=== PATIENT | female | born 1975 | race Two or more races ===

== ENCOUNTER 2024-10-13 04:33 | Emergency (ER) | payer MEDICAID, SELFPAY ==
[2024-10-13 04:33] VITALS: BMI 35.2
[2024-10-13 04:38] VITALS: BP 150/92; PULSE 77; RESP 19; TEMP 36.6; O2SAT 97
--- NOTE | 2024-10-13 04:59 | XR_ITS ---
Examination: CT brain head without contrast. 2-D sagittal coronal reconstructions Date and time of exam:October 13, 2024 0514 hrs. Comparison September 15, 2019 Indications: Headaches pressure in the head and face beginning 3 days ago CTDI: vol (mGy):48.8 DLP: (mGycm):1003 Technique: Multiple CT axial sections of the brain have been obtained, 5 mm slice thickness. Contrast has not been administered. 2-D sagittal, coronal reconstructions have been obtained Low dose protocols were performed. One or more of the following dose reduction techniques were used; automated exposure control, adjustment of the mA and/or KV according to patient size, use of iterative reconstruction technique. Findings: No significant ventricular enlargement. Intra-axial or extra-axial hemorrhage density is not seen. No mass effect or midline shift Basal cisterns are not remarkable. Fourth ventricle is midline. Cranial vault intact. Impression: Negative for acute hemorrhage, mass effect or midline shift Advise clinical correlation and follow-up accordingly
--- NOTE | 2024-10-13 04:59 | PD.EDRME ---
Rapid Medical Screening Exam E Arrival date/time: 10/13/24 04:33 49F with no significant PMH presents to ED with 2 days of face/head pressure, that feels different than a SOFIA. Patient has had some nasal congestion. Patient insists on CT. Chief Complaint: Headache Vital signs: Vital Signs Temperature 97.9 F 10/13/24 04:38 Pulse Rate 77 10/13/24 04:38 Respiratory Rate 19 10/13/24 04:38 Blood Pressure 150/92 H 10/13/24 04:38 Pulse Oximetry (%) 97 10/13/24 04:38 Oxygen Delivery Method Room Air 10/13/24 04:38
[2024-10-13] MEDS: DEXAMETHASONE SOD PHOS INJ 10 MG/ML VIAL PO (05:08)
--- NOTE | 2024-10-13 05:56 | PRELIM_ITS ---
CT scan of the head without intravenous contrast (axial sections with sagittal and coronal reformats) . October 13, 2024 0514 hoursClinical History: Pressure in head/faceComparison: No prior study is available for comparison. Findings:No evidence of intracranial hemorrhage, mass effect or midline kiana ft. The ventricles and CSF spaces are unremarkable. The calvarium is unremarkable. The mastoid air ce lls and the visualized paranasal sinuses are clear.Impression:No evidence of intracranial hemorrhage, mass effect or midline shift. Report Electronically Signed By: Yakov Rico 10/13/2024 5:56:09 AM [ES T]
--- NOTE | 2024-10-13 06:26 | PD.EDHA ---
ED Headache RME/HPI General Chief Complaint: Headache Stated Complaint: HEADACHE Time Seen by Provider: 10/13/24 06:05 Arrival date/time: 10/13/24 04:33 49F with no significant PMH presents to ED with 2 days of face/head pressure, that feels different than a SOFIA. Patient has had some nasal congestion. Patient insists on CT. there are no other associated symptoms or aggravating factors no other modifying factors, patient denies taking medication before coming to ER today Limitations: no limitations RME / HPI RME / HPI Narrative: 10/13/24 04:33 49F with no significant PMH presents to ED with 2 days of face/head pressure, that feels different than a SOFIA. Patient has had some nasal congestion. Patient insists on CT. Related Data Previous Rx's ?Medication ?Instructions ?Recorded benzonatate 100 mg capsule 100 mg PO TID #14 caps 05/29/24 ibuprofen 800 mg tablet 800 mg PO TID PRN pain #30 tabs 05/29/24 ibuprofen 800 mg tablet 800 mg PO TID PRN pain #30 tabs 07/22/24 fluticasone propionate 50 2 spray intranasal QDAY PRN 10/13/24 mcg/actuation nasal allergy symptoms #16 grams spray,suspension (Flonase Allergy Relief) ibuprofen 800 mg tablet 800 mg PO TID PRN pain #30 tabs 10/13/24 prednisone 10 mg tablet 30 mg (3 x 10 mg) PO BID 3 days 10/13/24 #18 tabs Allergies Allergy/AdvReac Type Severity Reaction Status Date / Time hydrocodone bit Allergy Severe Nausea/Vomi Verified 08/10/24 06:27 tiing Review of Systems Review of Systems Systems Reviewed: All systems reviewed, normal except as documented Constitutional Constitutional: Reports system reviewed and no additional complaints, except as documented, Denies fever(s) and Reports headache(s) Eyes Eyes: Reports system reviewed and no additional complaints, except as documented and Denies blurry vision ENT Ears, Nose, Mouth, and Throat: Reports system reviewed and no additional complaints, except as documented, Reports headache(s), Reports nasal congestion and Reports nasal discharge Cardiovascular Cardiovascular: Reports system reviewed and no additional complaints, except as documented, Denies chest pain and Denies dyspnea Respiratory Respiratory: Reports system reviewed and no additional complaints, except as documented, Denies chest congestion, Denies cough and Denies dyspnea Gastrointestinal Gastrointestinal: Reports system reviewed and no additional complaints, except as documented and Denies abdominal pain Integumentary/Breasts Skin/Breast: Reports system reviewed and no additional complaints, except as documented and Denies rash Neurologic Neurologic: Reports system reviewed and no additional complaints, except as documented, Reports as per HPI and Reports headache(s) Past Medical History Past Medical History NEUROLOGIC: Negative Seizures CARDIAC: Negative Congestive Heart Failure RESPIRATORY: Negative Chronic Obstructive Pulmonary Disease (COPD) GENITOURINARY: Negative Renal Disease ENDOCRINE: Negative Diabetes Mellitus Type 1 or Diabetes Mellitus Type 2 OTHER HISTORY: Negative Blood Transfusions, Blood Transfusion Reaction or Anesthesia Reactions Family History FAMILY HISTORY: Positive Family Cardiac Disorders Social History SMOKING STATUS: Never smoker ED Exam General Limitations: Present no limitations General appearance: Present alert and in no apparent distress Head Head exam: Present atraumatic Eye Eye exam: Present normal appearance, PERRL and EOMI; Absent conjunctival injection ENT ENT exam: Present normal exam, normal oropharynx and mucous membranes moist Neck Neck exam: Present normal inspection, full ROM and trachea midline Chest Chest inspection: Present normal inspection and symmetric chest wall rise Respiratory Respiratory exam: Present normal lung sounds bilaterally; Absent respiratory distress Cardiovascular Cardiovascular exam: Present regular rate, normal rhythm and normal heart sounds Abdominal Exam Abdominal exam: Present soft and normal bowel sounds Extremities Exam Extremities exam: Present normal inspection and full ROM Back Exam Back exam: Present normal inspection and full ROM Neurological Exam Neurological exam: Present alert, oriented X3 and CN II-XII intact Psychiatric Psychiatric exam: Present normal affect and normal mood Skin Skin exam: Present warm, dry, intact and normal color Course Quality Measures none Orders Category Date Time Status CT head/brain wo con Stat Exams 10/13/24 04:59 Completed Dexamethasone Inj [Decadron Inj] Med 10/13/24 04:59 Discontinued 10 mg PO X1 ONE Vital Signs Vital signs: Vital Signs Temperature 97.9 F 10/13/24 04:38 Pulse Rate 77 10/13/24 04:38 Respiratory Rate 19 10/13/24 04:38 Blood Pressure 150/92 H 10/13/24 04:38 Pulse Oximetry (%) 97 10/13/24 04:38 Oxygen Delivery Method Room Air 10/13/24 04:38 O2 saturation 97% room air within normal limits Headache MDM Narrative MDM Narrative:: 49F with no significant PMH presents to ED with 2 days of face/head pressure, that feels different than a SOFIA. Patient has had some nasal congestion. Patient insists on CT. there are no other associated symptoms or aggravating factors no other modifying factors, patient denies taking medication before coming to ER today On exam symptoms highly consistent with URI/nasal congestion Patient on exam has no abnormal neurological findings Patient discharged home in no distress to follow-up with primary care doctor in the next 24 to 48 hours and for any worsening symptoms to return to the ER immediately Patient data External records reviewed:: [facility] previous records Clinical information provided by:: patient Social determinants that could affect healthcare access:: none Patient has the following chronic illnesses:: None How is presenting disease/condition affected by chronic disease/condition?: no chronic disease Evaluation data The following diagnostics were reviewed and interpreted by me:: radiology exam(s) Lab and/or radiology exams considered but not ordered:: Radiology obtained Interpretation Summary: Reviewed by me Medications / Prescriptions Medications or Prescriptions considered but not ordered:: Given Medication administrations:: Medication Administration History Discontinued Medications Dexamethasone Sodium Phosphate (Dexamethasone Sod Phos Inj 10 Mg/Ml Vial) 10 mg PO X1 ONE Stop: 10/13/24 05:00 Last Admin: 10/13/24 05:08 Dose: 10 mg Documented By: CVL Given Consultations Consultation(s) initiated? (list below): No Diagnosis Differential diagnosis headache: migraine and tension headache Most likely diagnosis given after review of the tests above:: Headache Admission Indicated Admission indicated?: not indicated Admission Request Was there a request for admission?: No Disposition Plan Disposition Plan: Discharge Discharge Attestation Discharge Attestation: The patient and all family members were given an opportunity to ask questions and understood the discharge instructions. Discharge instructions specifically effects, indications for sooner follow up or return to the emergency department, and the expected course of current diagnosis. Patient condition: Stable Discharge Plan Plan Patient Disposition: HOME (Self Care) Disposition Comment: Stable Prescriptions/Referrals Prescriptions/Med Rec: New fluticasone propionate [Flonase Allergy Relief] 50 mcg/actuation spray,suspension 2 spray INTRANASAL QDAY PRN (Reason: allergy symptoms) Qty: 16 0RF Rx Instructions: administer into each nostril prednisone 10 mg tablet 30 mg PO BID 3 Days Qty: 18 0RF ibuprofen 800 mg tablet 800 mg PO TID PRN (Reason: pain) Qty: 30 0RF No Action ibuprofen 800 mg tablet 800 mg PO TID PRN (Reason: pain) Qty: 30 0RF benzonatate 100 mg capsule 100 mg PO TID Qty: 14 0RF ibuprofen 800 mg tablet 800 mg PO TID PRN (Reason: pain) Qty: 30 0RF Referrals: Dali Galvan MD [Primary Care Provider] - 10/14/24 Problem List Clinical Impression: Headache, Congested nose Patient/Caregiver Discharge Instructions Education Materials: Self-Care for Headaches Additional Instructions: Please follow up with your primary care doctor in the next 24-48hrs for any worsening symptoms return here immediately Print Language: Yakut Stand Alone Forms: Delia Award Info., Patient Portal Info Letter MD Attestation Attestation The patient was seen by the midlevel practitioner. I, the co-signing physician, was present during the entire ER visit. While I did not physically examine the patient, I was available for consultation as needed.
[2024-10-13 06:36] VITALS: RESP 18
== END 2024-10-13 06:37 | disposition home or self-care (01) ==
PROVIDERS: Emergency Provider Emergency Medicine; PCP Family Medicine
DX: R51.9 Headache, unspecified (principal); R09.81 Nasal congestion
CPT/HCPCS: 70450; 99284; J1100

== ENCOUNTER 2024-10-23 13:34 | Emergency (ER) | payer MEDICAID, SELFPAY ==
[2024-10-23 13:58] VITALS: BP 150/90; PULSE 84; RESP 18; TEMP 37.2; O2SAT 98; BMI 34.9
--- NOTE | 2024-10-23 14:00 | PD.EDEAR ---
ED Ear RME/HPI General Chief complaint: Ear Stated complaint: Left ear pain, blood in ear today Time Seen by Provider: 10/23/24 13:38 Arrival date/time: 10/23/24 13:34 49-year-old female presents emergency department today with complaints of left ear pain patient reports that she poked her left ear with a Q-tip patient reports symptoms blood on the end of the Q-tip patient reports no active bleeding Limitations: no limitations Related Data Previous Rx's ?Medication ?Instructions ?Recorded benzonatate 100 mg capsule 100 mg PO TID #14 caps 05/29/24 ibuprofen 800 mg tablet 800 mg PO TID PRN pain #30 tabs 05/29/24 ibuprofen 800 mg tablet 800 mg PO TID PRN pain #30 tabs 07/22/24 fluticasone propionate 50 2 spray intranasal QDAY PRN 10/13/24 mcg/actuation nasal allergy symptoms #16 grams spray,suspension (Flonase Allergy Relief) ibuprofen 800 mg tablet 800 mg PO TID PRN pain #30 tabs 10/13/24 amoxicillin 875 mg-potassium 1 tab PO BID 10 days #20 tabs 10/23/24 clavulanate 125 mg tablet ibuprofen 800 mg tablet 800 mg PO TID PRN pain #30 tabs 10/23/24 ofloxacin 0.3 % ear drops 10 drop otic (ear) QDAY 10 days 10/23/24 #10 mL Allergies Allergy/AdvReac Type Severity Reaction Status Date / Time hydrocodone bit Allergy Severe Nausea/Vomi Verified 08/10/24 06:27 tiing Review of Systems Review of Systems Systems Reviewed: All systems reviewed, normal except as documented Constitutional Constitutional: Reports system reviewed and no additional complaints, except as documented, Denies fever(s) and Denies headache(s) Eyes Eyes: Reports system reviewed and no additional complaints, except as documented and Denies blurry vision ENT Ears, Nose, Mouth, and Throat: Reports system reviewed and no additional complaints, except as documented, Denies ear discharge, Reports otalgia, Denies headache(s), Denies nasal congestion and Denies nasal discharge Cardiovascular Cardiovascular: Reports system reviewed and no additional complaints, except as documented, Denies chest pain and Denies dyspnea Respiratory Respiratory: Reports system reviewed and no additional complaints, except as documented, Denies chest congestion, Denies cough and Denies dyspnea Gastrointestinal Gastrointestinal: Reports system reviewed and no additional complaints, except as documented and Denies abdominal pain Integumentary/Breasts Skin/Breast: Reports system reviewed and no additional complaints, except as documented and Denies rash Neurologic Neurologic: Reports system reviewed and no additional complaints, except as documented, Reports as per HPI and Denies headache(s) Past Medical History Past Medical History NEUROLOGIC: Negative Neurological Disorders CARDIAC: Negative Cardiac Disorders ED Exam General Limitations: Present no limitations General appearance: Present alert and in no apparent distress Head Head exam: Present atraumatic Eye Eye exam: Present normal appearance, PERRL and EOMI ENT ENT exam: Present mucous membranes moist Expanded ENT Exam TM/Canal exam: Left TM: perforation Neck Neck exam: Present normal inspection, full ROM and trachea midline Chest Chest inspection: Present normal inspection and symmetric chest wall rise Respiratory Respiratory exam: Present normal lung sounds bilaterally Cardiovascular Cardiovascular exam: Present regular rate, normal rhythm and normal heart sounds Abdominal Exam Abdominal exam: Present soft and normal bowel sounds Extremities Exam Extremities exam: Present normal inspection and full ROM Back Exam Back exam: Present normal inspection and full ROM Neurological Exam Neurological exam: Present alert, oriented X3 and CN II-XII intact Psychiatric Psychiatric exam: Present normal affect and normal mood Skin Skin exam: Present warm, dry, intact and normal color Course Quality Measures none Vital Signs Vital signs: Vital Signs Temperature 99.0 F 10/23/24 13:58 Pulse Rate 84 10/23/24 13:58 Respiratory Rate 18 10/23/24 13:58 Blood Pressure 150/90 H 10/23/24 13:58 Pulse Oximetry (%) 98 10/23/24 13:58 Oxygen Delivery Method Room Air 10/23/24 13:58 O2 saturation 98% room air within normal limits Ear Patient data External records reviewed:: [facility] previous records Clinical information provided by:: patient Social determinants that could affect healthcare access:: none Patient has the following chronic illnesses:: See history How is presenting disease/condition affected by chronic disease/condition?: uneffected by Evaluation data The following diagnostics were reviewed and interpreted by me:: other (specify) (N/A) Lab and/or radiology exams considered but not ordered:: Consider not ordered Interpretation Summary: N/A Medications / Prescriptions Medications or Prescriptions considered but not ordered:: Given Medication administrations:: Given Consultations Consultation(s) initiated? (list below): No Diagnosis Most likely diagnosis given after review of the tests above:: TM injury Admission Indicated Admission indicated?: not indicated Admission Request Was there a request for admission?: No Disposition Plan Disposition Plan: Discharge Discharge Attestation Discharge Attestation: The patient and all family members were given an opportunity to ask questions and understood the discharge instructions. Discharge instructions specifically effects, indications for sooner follow up or return to the emergency department, and the expected course of current diagnosis. Patient condition: Stable Medical Decision Making MDM Narrative MDM Narrative: 49-year-old female presents emergency department today with complaints of left ear pain patient reports that she poked her left ear with a Q-tip patient reports symptoms blood on the end of the Q-tip patient reports no active bleeding On exam patient does not appear ill or toxic in no acute distress Patient appears to have a small TM rupture patient will treat with course of antibiotics and pain medication patient instructed to follow-up with specialist Patient discharged home in no distress to follow-up with primary care doctor in the next 24 to 48 hours and for any worsening symptoms to return to the ER immediately Differential Diagnosis Differential Diagnosis: Otitis media, otitis externa, eustachian tube dysfunction Medical Records Medical records reviewed: Yes I reviewed the patient's medical records. Discharge Plan Plan Patient Disposition: HOME (Self Care) Disposition Comment: Stable Prescriptions/Referrals Prescriptions/Med Rec: New ibuprofen 800 mg tablet 800 mg PO TID PRN (Reason: pain) Qty: 30 0RF amoxicillin-pot clavulanate 875-125 mg tablet 1 tab PO BID 10 Days Qty: 20 0RF ofloxacin 0.3 % drops 10 drop otic (ear) QDAY 10 Days Qty: 10 0RF No Action fluticasone propionate [Flonase Allergy Relief] 50 mcg/actuation spray,suspension 2 spray INTRANASAL QDAY PRN (Reason: allergy symptoms) Qty: 16 0RF Rx Instructions: administer into each nostril ibuprofen 800 mg tablet 800 mg PO TID PRN (Reason: pain) Qty: 30 0RF ibuprofen 800 mg tablet 800 mg PO TID PRN (Reason: pain) Qty: 30 0RF benzonatate 100 mg capsule 100 mg PO TID Qty: 14 0RF ibuprofen 800 mg tablet 800 mg PO TID PRN (Reason: pain) Qty: 30 0RF Problem List Clinical Impression: Ear pain, left, Injury of tympanic membrane Patient/Caregiver Discharge Instructions Education Materials: Anatomy of the Ear Additional Instructions: Please follow up with your primary care doctor in the next 24-48hrs for any worsening symptoms return here immediately Print Language: [place] Stand Alone Forms: Delia Award Info., Patient Portal Info Letter PA/[employer] Supervising Physician PA/[employer] Supervising Physician: Dr Call
== END 2024-10-23 14:09 | disposition home or self-care (01) ==
LOC: SERX 14:14
PROVIDERS: Emergency Provider Emergency Medicine; PCP Nurse Practitioner Family
DX: S09.91XA Unspecified injury of ear, initial encounter (principal); X58.XXXA Exposure to other specified factors, initial encounter
CPT/HCPCS: 99281

== ENCOUNTER 2025-05-21 06:59 | Emergency (ER) | payer MEDICAID, SELFPAY ==
[2025-05-21 07:01] VITALS: BMI 34.7
[2025-05-21 07:09] VITALS: BP 132/88; PULSE 75; RESP 18; TEMP 36.7; O2SAT 97
--- NOTE | 2025-05-21 07:41 | EDNOTE_ITS ---
ED Extremity Problem RME/HPI General Chief complaint: Extremity Problem,Nontraumatic Stated complaint: FIFI. KNEE PAIN Time Seen by Provider: 05/21/25 07:06 Source: patient Arrival date/time: 05/21/25 06:59 49-year-old female with no known medical history presents to the emergency room with a chief complaint of bilateral knee pain x 4 days Mode of arrival: ambulatory Limitations: no limitations Related Data Previous Rx's ?Medication ?Instructions ?Recorded benzonatate 100 mg capsule 100 mg PO TID #14 caps 05/19 12/12 ibuprofen 800 mg tablet 800 mg PO TID PRN pain #30 t abs 05/29/24 ibuprofen 800 mg tablet 800 mg PO TID PRN pain #30 t abs 07/22/24 fluticasone propionate 50 2 spray intranasal QDAY PRN 10/13/24 mcg/actuation nasal allergy symptoms #16 grams spray,suspension (Flonase Allergy Relief) ibuprofen 800 mg tablet 800 mg PO TID PRN pain #30 t abs 10/13/24 ibuprofen 800 mg tablet 800 mg PO TID PRN pain #30 t abs 10/23/24 Allergies Allergy/AdvReac Type Severity Reaction Status Date / Time hydrocodone bit Allergy Severe Nausea/Vomi Verified 05/21/25 07:00 tiing acetaminophen (From Vicodin) Allergy Swelling Verified 05/21/25 07:00 of Lip/Tongue/Throat hydrocodone (From Vicodin) Allergy Swelling Verified 05/21/25 07:00 of Lip/Tongue/Throat Review of Systems Review of Systems Systems Reviewed: All systems reviewed, normal except as documented Constitutional Constitutional: Reports system reviewed and no additional complaints, except as documented, Denies fatigue, Denies fever(s), Denies headache(s) and Denies weakness Eyes Eyes: Reports system reviewed and no additional complaints, except as documented, Denies blurry vision and Denies change in vision ENT Ears, Nose, Mouth, and Throat: Reports system reviewed and no additional complaints, except as documented, Denies otalgia, Denies headache(s), Denies nasal congestion, Denies throat swelling and Denies vertigo Cardiovascular Cardiovascular: Reports system reviewed and no additional complaints, except as documented, Denies chest pain, Denies dyspnea and Denies dyspnea on exertion Respiratory Respiratory: Reports system reviewed and no additional complaints, except as documented, Denies chest congestion, Denies cough, Denies dyspnea, Denies dyspnea on exertion and Denies wheezing Gastrointestinal Gastrointestinal: Reports system reviewed and no additional complaints, except as documented, Denies abdominal pain, Denies cramping, Denies nausea and Denies vomiting Genitourinary Genitourinary: Reports system reviewed and no additional complaints, except as documented Musculoskeletal Musculoskeletal: Reports system reviewed and no additional complaints, except as documented, Reports arthralgias and Denies back pain Integumentary/Breasts Skin/Breast: Reports system reviewed and no additional complaints, except as documented and Denies wounds Neurologic Neurologic: Reports system reviewed and no additional complaints, except as documented, Denies confusion, Denies headache(s), Denies lack of coordination, Denies vertigo and Denies weakness Psychiatric Psychiatric: Reports system reviewed and no additional complaints, except as documented, Denies anxiety, Denies confusion, Denies depression, Denies paranoia, Denies suicidal ideation and Denies tactile hallucinations Endocrine Endocrine: Reports system reviewed and no additional complaints, except as documented and Denies fatigue Hematologic/Lymphatic Hematologic/Lymphatic: Reports system reviewed and no additional complaints, except as documented and Denies lymphadenopathy Allergic/Immunologic Allergic/Immunologic: Reports system reviewed and no additional complaints, except as documented, Denies throat swelling, Denies urticaria and Denies wheezing ED Exam General Limitations: Present no limitations Course Quality Measures none Vital Signs Vital signs: Vital Signs Temperature 98.1 F 05/21/25 07:09 Pulse Rate 75 05/21/25 07:09 Respiratory Rate 18 05/21/25 07:09 Blood Pressure 132/88 H 05/21/25 07:09 Pulse Oximetry (%) 97 05/21/25 07:09 Oxygen Delivery Method Room Air 05/21/25 07:09 O2 saturation 97% within normal limits Extremity Problem MDM Narrative MDM Narrative:: 49-year-old female with no known medical history presents to the emergency room with a chief complaint of bilateral knee pain x 4 days Patient is hemodynamically stable and in no apparent distress Physical examination shows tenderness to the patient's bilateral knees. During my physical examination there is no swelling there is no erythema there is no numbness and the patient denies any trauma. The pain is to the bilateral knees and the patient states that occurred after she went on a jog. Patient denies any stretching and states that the pain is still there. I spoke to the patient and told her that she can follow-up with her primary care provider and return to the emergency room for any evidence of worsening signs or symptoms Patient data External records reviewed:: [facility] previous records Clinical information provided by:: patient Social determinants that could affect healthcare access:: none Patient has the following chronic illnesses:: No chronic illness How is presenting disease/condition affected by chronic disease/condition?: no chronic disease Evaluation data The following diagnostics were reviewed and interpreted by me:: lab results and radiology exam(s) Lab and/or radiology exams considered but not ordered:: Labs and radiology exams considered and ordered Interpretation Summary: N/A Medications / Prescriptions Medications or Prescriptions considered but not ordered:: No medication given Medication administrations:: No medication given Consultations Consultation(s) initiated? (list below): No Diagnosis Extremity Problem Differential Diagnosis: other (Bilateral knee pain/knee fracture/knee dislocation) Most likely diagnosis given after review of the tests above:: Bilateral knee pain Admission Indicated Admission indicated?: not indicated Admission Request Was there a request for admission?: No Disposition Plan Disposition Plan: Discharge Discharge Attestation Discharge Attestation: The patient and all family members were given an opportunity to ask questions and understood the discharge instructions. Discharge instructions specifically effects, indications for sooner follow up or return to the emergency department, and the expected course of current diagnosis. Patient condition: Stable Discharge Plan Plan Patient Disposition: HOME (Self Care) Discharge Disposition comment: Stable Prescriptions/Referrals Prescriptions/Med Rec: No Action fluticasone propionate [Flonase Allergy Relief] 50 mcg/actuation spray,suspension 2 spray INTRANASAL QDAY PRN (Reason: allergy symptoms) Qty: 16 0RF Rx Instructions: administer into each nostril ibuprofen 800 mg tablet 800 mg PO TID PRN (Reason: pain) Qty: 30 0RF ibuprofen 800 mg tablet 800 mg PO TID PRN (Reason: pain) Qty: 30 0RF benzonatate 100 mg capsule 100 mg PO TID Qty: 14 0RF ibuprofen 800 mg tablet 800 mg PO TID PRN (Reason: pain) Qty: 30 0RF ibuprofen 800 mg tablet 800 mg PO TID PRN (Reason: pain) Qty: 30 0RF Problem List Clinical Impression: Knee sprain, bilateral Patient/Caregiver Discharge Instructions Education Materials: ED Knee Sprain Additional Instructions: Please follow-up with your primary care provider in the next 24 to 48 hours For any evidence of worsening signs or symptoms return to the emergency room immediately Print Language: [place] Stand Alone Forms: Delia Award Info., Patient Portal Info Letter
== END 2025-05-21 08:10 | disposition home or self-care (01) ==
LOC: SERX 07:36
PROVIDERS: Emergency Provider Family Medicine; PCP Family Medicine
DX: S83.91XA Sprain of unspecified site of right knee, initial encounter (principal); S83.92XA Sprain of unspecified site of left knee, initial encounter; X58.XXXA Exposure to other specified factors, initial encounter
CPT/HCPCS: 99281